=== PATIENT | male | born 1995 | race Caucasian/White ===

== ENCOUNTER 2016-04-10 17:18 | Emergency (ER) | payer BC ==
[2016-04-10] MEDS ORDERED: DIPH/PERTUSS(ACELL)/TETANUS VAC/PF 0.5 ML SYR (>=10YO) IM ONE (17:39)
--- NOTE | 2016-04-10 17:39 | ER Document Report ---
ED Medical Screen (RME) - General Stated Complaint: BITE/LEFT PALM Notes: Dog bite to left hand TRAVEL OUTSIDE OF THE [place] IN LAST 30 DAYS: No - Related Data Allergies/Adverse Reactions: No Known Allergies Allergy (Verified 07/06/12 04:47) Past Medical History - Immunizations Immunizations up to date: Yes Hx Diphtheria, Pertussis, Tetanus Vaccination: Yes
--- NOTE | 2016-04-10 18:20 | ER Document Report ---
ED Animal Bite - General Chief Complaint: Dog Bite Stated Complaint: BITE/LEFT PALM Notes: The patient is a 21-year-old male who presents after a dog bit his left hand. The dog was acting normally before he bit the hand. Rabies vaccine is up-to- date of the dog. Tetanus is up-to-date. Denies numbness, tingling, discharge of the wound, redness or fevers. TRAVEL OUTSIDE OF THE [place] IN LAST 30 DAYS: No - Related Data Allergies/Adverse Reactions: No Known Allergies Allergy (Verified 07/06/12 04:47) Past Medical History - General Information source: Patient - Social History Smoking Status: Unknown if Ever Smoked Family History: Reviewed & Not Pertinent Patient has suicidal ideation: No Patient has homicidal ideation: No Renal/ Medical History: Denies: Hx Peritoneal Dialysis - Immunizations Immunizations up to date: Yes Hx Diphtheria, Pertussis, Tetanus Vaccination: Yes Review of Systems - Review of Systems Notes: REVIEW OF SYSTEMS: CONSTITUTIONAL: -fevers, -chills EENT: -eye pain, -difficulty swallowing, -nasal congestion CARDIOVASCULAR:-chest pain, -syncope. RESPIRATORY: -cough, -SOB GASTROINTESTINAL: -abdominal pain, - nausea, -vomiting, -diarrhea GENITOURINARY: -dysuria, -hematuria MUSCULOSKELETAL: +left hand pain, -back pain, -neck pain SKIN: +laceration HEMATOLOGIC: -easy bruising or bleeding. LYMPHATIC: -swollen, enlarged glands. NEUROLOGICAL: -altered mental status or loss of consciousness, -headache, - neurologic symptoms PSYCHIATRIC: -anxiety, -depression. ALL OTHER SYSTEMS REVIEWED AND NEGATIVE. Physical Exam - Vital signs Vitals: Temp Pulse BP Pulse Ox 97.9 F 62 150/79 H 99 04/10/16 17:39 04/10/16 17:39 04/10/16 17:39 04/10/16 17:39 - Notes Notes: PHYSICAL EXAMINATION: GENERAL: Well-appearing, well-nourished and in no acute distress. HEAD: Atraumatic, normocephalic. EYES: Pupils equal round and reactive to light, extraocular movements intact, sclera anicteric, conjunctiva are normal. ENT: nares patent, oropharynx clear without exudates. Moist mucous membranes. NECK: Normal range of motion, supple without lymphadenopathy LUNGS: Breath sounds clear to auscultation bilaterally and equal. No wheezes rales or rhonchi. HEART: Regular rate and rhythm without murmurs ABDOMEN: Soft, nontender, normoactive bowel sounds. No guarding, no rebound. No masses appreciated. EXTREMITIES: Left hand tendons intact. N/V intact distally. Brisk capillary refills. Normal range of motion, no pitting or edema. No cyanosis. NEUROLOGICAL: Cranial nerves grossly intact. Normal speech, normal gait. Normal sensory, motor, and reflex exams. PSYCH: Normal mood, normal affect. SKIN: 4 cm linear laceration over left palm Course - Re-evaluation Re-evalutation: His tetanus is up-to-date. Dog's rabies vaccine is up-to-date. Neurovascularly intact distally from the laceration. Laceration repaired and will send home with Augmentin due to location of injury on his hand. Given strict return precautions and he is able to verbalize them. Will have him follow-up in 2 days for a wound recheck and 5-7 days for suture removal. - Vital Signs Vital signs: Temp Pulse Resp BP Pulse Ox 97.9 F 62 150/79 H 99 04/10/16 17:39 04/10/16 17:39 04/10/16 17:39 04/10/16 17:39 Procedures - Laceration/Wound Repair Left Anterior Hand Time completed: 19:53 Wound length (cm): 4 Wound's Depth, Shape: Into muscle, Linear Laceration pre-procedure: Sterile PPE donned, Sterile drapes applied, Shur- Clens applied Anesthetic type: 1% Lidocaine w/epi Volume Anesthetic (mLs): 5 Wound explored: Clean Irrigated w/ Saline (mLs): 1,000 Wound Debrided: Moderate Wound Repaired With: Sutures Suture Size/Type: 4:0, Prolene Number of Sutures: 8 Layer Closure?: No Post-procedure wound care: Sterile dressing applied Post-procedure NV exam normal: Yes Complications: No Discharge - Discharge Clinical Impression: Dog bite Qualifiers: Encounter type: initial encounter Qualified Code(s): W54.0XXA - Bitten by dog, initial encounter Laceration of left hand Qualifiers: Encounter type: initial encounter Qualified Code(s): S61.412A - Laceration without foreign body of left hand, initial encounter Condition: Good Disposition: HOME, SELF-CARE Additional Instructions: Animal Bites Animal bites are often heavily contaminated with bacteria. In spite of thorough cleansing and proper treatment, these wounds frequently become infected. Bite wounds of the hands are especially prone to complications. Bites are dressed, if possible. Large wounds may require suturing after internal cleansing. Because of infection risk, some large wounds must remain unstitched. Your doctor is trained to advise you on the best treatment for your bite. Call the doctor at once if the wound becomes red, swollen, warm, increasingly painful, or if it begins to drain. Danger signs also include red streaks up the involved extremity, swollen glands in the groin or under the arm , or fever and chills. The risk of rabies from domestic animals is very low. Bats, sick animals, and wild animals may expose you to rabies. The physician, or the health department, will inform you if you will need to receive the rabies vaccine. LACERATION CARE: Your laceration has been sutured to keep the skin edges aligned during healing. The time of suture removal depends on the nature and location of your cut. Please follow the care instructions the doctor has outlined for you and return for further care, according to the schedule you've been given. Keep the wound and dressing clean. Unless you were told otherwise, you may shower daily, blotting the wound dry with a clean, unused towel. At other times, If the dressing gets wet or blood soaked, remove it and blot the wound dry, then reapply a new dressing. Unless you were instructed otherwise, dressings should be changed at least daily. If any signs of infection occur (swelling, redness, drainage, increasing tenderness, red streaks, tender lumps in the armpit or groin above the laceration, or fever), see the doctor immediately. SOAP CLEANSING: Gently wash the wound daily using a mild soap (like Ivory, Phisoderm, Neutrogena). Use warm water, rubbing gently until all debris, ooze, and crusting have been washed from the wound. Allow to dry briefly (about 10 minutes) after cleaning. Repeat this cleansing at least three times a day for the first two days and then once or twice a day. ANTIBIOTIC OINTMENT PROTECTION: Your wounds are such that dressing them is not practical or optional. After cleansing, you should apply a thin coating of antibiotic ointment ( Bacitracin, not Neosporin) to the wounds at least three times daily. This lessens infection risk, and may decrease the amount of scarring. Use a q-tip or dull butter knife, not your finger, to apply this ointment. Any debris or ooze which builds up in the ointment should be gently rubbed off with a sterile gauze pad. Harder crusting may need to be gently scrubbed off with a clean wash cloth with soap and warm water, perhaps applying a warm, wet wash cloth to the wound for ten minutes first. Development of redness, severe itching, or blistering may mean allergy to the ointment. See the doctor PROPHYLACTIC ANTIBIOTIC: The antibiotics which have been prescribed are designed to decrease the risk of infection. Only certain types of wounds benefit from this -- the typical cut, scrape, or burn DOES NOT require antibiotics. Of course, infection can still occur despite the use of prophylactic antibiotics. Your wound will heal with less chance of an infectious complication if you take the medication as directed. The most important dose is the FIRST dose, so don't delay filling the prescription! FOLLOW-UP CARE: Please return in 2 days for an infection check and dressing change. Your sutures should be removed in 7 days. To facilitate a timely removal of your sutures, you may return to the Emergency Department at [facility]. You do not need to call for an appointment, but the best time to come in for suture removal is early in the morning. If you have been referred to another physician for follow-up care, call that physicians office for an appointment as you were instructed. If you experience a significant change in your laceration, or if you are concerned there may be an infection (swelling, redness, drainage, increasing tenderness, red streaks, tender lumps in the armpit or groin above the laceration, or fever) , return to the Emergency Department immediately re-evaluation. Prescriptions: Amox Tr/Potassium Clavulanate [Augmentin 875-125 Tablet] 1 tab PO BID 7 Days Referrals: HUI RIOJASP [Primary Care Provider] - Follow up as needed
[2016-04-10] MEDS ORDERED: LIDOCAINE 1%/EPINEPHRINE INJ 20 ML VIAL INJ ONE (18:26)
[2016-04-10 20:10] VITALS: BP 137/85
== END 2016-04-10 19:52 | disposition home or self-care (01) ==
LOC: ER 17:18
PROC: 0HQGXZZ Repair Left Hand Skin, External Approach (ICD-10-PCS; principal; 2016-04-10)
DX: S61.452A Open bite of left hand, initial encounter (principal); W54.0XXA Bitten by dog, initial encounter; Y93.K9 Activity, other involving animal care
CPT/HCPCS: 12002; 99283; J3490

== ENCOUNTER 2016-04-13 09:07 | Emergency (ER) | payer BC ==
--- NOTE | 2016-04-13 10:06 | ER Document Report ---
HPI - HPI Patient complains to provider of: recheck dog bite wound Onset: Other - Monday Onset/Duration: Sudden Pain Level: 3 Context: 21-year-old male bitten by dog on Monday causing laceration to his left palm was sutured.. When he extended his fingers yesterday in the proximal aspect of the wound he saw pus and blood come out. It feels better today. He started his Augmentin 875 twice a day yesterday. - DERM Skin Color: Normal Past Medical History - General Information source: Patient - Social History Smoking Status: Current Every Day Smoker Chew tobacco use (# tins/day): Yes Frequency of alcohol use: Social Lives with: Family Family History: Reviewed & Not Pertinent Patient has suicidal ideation: No Patient has homicidal ideation: No - Medical History Medical History: Negative Surgical Hx: Negative - Immunizations Immunizations up to date: Yes Hx Diphtheria, Pertussis, Tetanus Vaccination: Yes Vertical Provider Document - CONSTITUTIONAL Agree With Documented VS: Yes - INFECTION CONTROL TRAVEL OUTSIDE OF THE [place] IN LAST 30 DAYS: No - HEENT HEENT: Normocephalic - NECK Neck: Supple - RESPIRATORY O2 Sat by Pulse Oximetry: 100 - MUSCULOSKELETAL/EXTREMETIES Musculoskeletal/Extremeties: MAEW, FROM, Tender - mild tender suture line, Edema - mild Notes: no signs of tenosynovitis - NEURO Level of Consciousness: Awake, Alert Motor/Sensory: No Motor Deficit. negative: No Sensory Deficit Notes: pt states that since it happend the 3rd finger is tingling. - DERM Integumentary: Warm, Dry, Laceration Course - Re-evaluation Re-evalutation: 04/13/16 10:[address] pierce, question is if any stitches to come out since the patient states that when he straightened his fingers out yesterday some pus and blood drained from the proximal asked backed off the suture line. He is taking Augmentin 875mg bid which he started yesterday. 04/13/16 11:27 5 Sutures removed. irrigated with saline. no pus. - Vital Signs Vital signs: Temp Pulse Resp BP Pulse Ox 97.3 F 71 16 147/92 H 100 04/13/16 09:14 04/13/16 09:14 04/13/16 09:14 04/13/16 09:14 04/13/16 09:14 Discharge - Discharge Clinical Impression: dog bite wound check Condition: Good Disposition: HOME, SELF-CARE Instructions: Wound Infection ([facility]) Additional Instructions: Continue the Augmentin wash hand with soap and water daily, dry well Continue range of motion for better extension of the fingers Return in 7 days for suture removal Return to the emergency room sooner if it gets more red, hot, or swollen. Prescriptions: Hydrocodone Bit/Acetaminophen [Hydrocodon-Acetaminophen 5-325] 1 each PO Q4HP PRN #10 tablet PRN Reason: Referrals: HUI RIOJASP [Primary Care Provider] - Follow up as needed
[2016-04-13] MEDS ORDERED: HYDROCODONE/ACETAMINOPHEN 5-325 MG TABLET PO ONE (10:18)
[2016-04-13 12:12] VITALS: BP 130/85
== END 2016-04-13 11:39 | disposition home or self-care (01) ==
LOC: ER 09:07
DX: S61.452D Open bite of left hand, subsequent encounter (principal); W54.0XXD Bitten by dog, subsequent encounter; F17.210 Nicotine dependence, cigarettes, uncomplicated
CPT/HCPCS: 87070; 87077; 87205; 99282